=== PATIENT | female | born 1950 | race Caucasian/White ===

== ENCOUNTER 2022-05-18 14:01 | Outpatient (CLI) | payer OTHER | END 2022-05-18 14:02 | disposition home or self-care (01) | LOC: BURRAD 14:01 | PROVIDERS: ATTEND Registered Nurse Community Health | DX: M54.50 Low back pain, unspecified (principal); M47.817 Spondylosis without myelopathy or radiculopathy, lumbosacral region | CPT/HCPCS: 72110 ==